=== PATIENT | female | born 1935 | race Caucasian/White ===

== ENCOUNTER 2019-07-24 07:00 | Inpatient (IN) ==
--- NOTE | 2019-07-16 10:39 | EKG Report ---
Test Performed on : 07/16/2019 10:18:20 AM Test Reason : pat Blood Pressure : / mmHG Vent. Rate : 077 BPM Atrial Rate : 077 BPM P-R Int : 208 ms QRS Dur : 084 ms QT Int : 384 ms P-R-T Axes : 070 -08 053 degrees QTc Int : 434 ms Sinus rhythm. with premature supraventricular complexes. Cannot rule out Anterior infarct , age undetermined Abnormal ECG When compared with ECG of 28-JUN-2017 07:57, Minimal criteria for Anterior infarct are now present Confirmed by Ulysses HUTTON, Nolan Yang ([id number]) on 07/17/2019 7:45:07 AM
[2019-07-16 10:50] LABS: URINE SOURCE CLEAN CATCH
[2019-07-16 10:57] LABS: BILIRUBIN URINE NEGATIVE (NEGATIVE); BLOOD URINE NEGATIVE (NEGATIVE); COLOR YELLOW; GLUCOSE URINE NEGATIVE (NEGATIVE); KETONE URINE NEGATIVE (NEGATIVE); LEUKOCYTES URINE SMALL (NEGATIVE); NITRITE URINE NEGATIVE (NEGATIVE); PH URINE 6.5; PROTEIN URINE NEGATIVE (NEGATIVE); SP GRAVITY URINE 1.014; TURBIDITY URINE CLEAR (CLEAR); UR EPITHELIAL CELLS <10 /HPF (<10); URINE BACTERIA 1+ /HPF; URINE RBC <10 /HPF (<10); URINE WBC 20-40 /HPF (<10); UROBILINOGEN URINE NORMAL (NORMAL)
[2019-07-16 10:58] LABS: BASO# 0.02 X1000 (0.0-0.2); BASO% 0.4 % (0.0-0.8); EOS# 0.08 X1000 (0.0-0.7); EOS% 1.6 % (0.0-10.0); HEMATOCRIT 42.8 % (37.0-47.0); HEMOGLOBIN 13.7 g/dL (12.0-16.0); LYMPH% 29.3 % (20.5-51.1); MCH 28.3 PG (27-31); MCV 88.4 FL (81-99); MONO# 0.56 X1000 (0.11-0.59); MONO% 10.9 % (1.7-9.3); MPV 9.8 FL (7.4-10.4); NEUT# 2.96 X1000 (1.4-6.5); NEUT% 57.8 % (42.2-75.2); PLT 155 X1000 (130-400); RBC 4.84 XMIL (4.2-5.4); RDW 15.6 % (11.5-14.5); WBC 5.12 X1000 (4.8-10.8)
[2019-07-16 11:03] LABS: HEMOGLOBIN A1C 5.6 % (4.8-6.0)
[2019-07-16 11:05] LABS: AGAP 10; BUN 18 mg/dL (8-22); CALCIUM 9.1 mg/dL (8.8-10.2); CHLORIDE 104 mmol/L (98-107); COSMO 285; CREATININE 0.7 mg/dL (0.5-0.9); ESTIMATED GFR > 60; GLUCOSE 140 mg/dL (70-104); POTASSIUM 4.1 mmol/L (3.5-5.1); SODIUM 141 mmol/L (136-145); TCO2 27 mmol/L (25-35)
[2019-07-16 11:31] LABS: INR 1.05; PROTIME 13.8 Seconds (11.0-16.0)
[2019-07-16 11:32] LABS: PTT 25.3 Seconds (22.3-41.8)
[2019-07-24] MEDS ORDERED: LYRICA ONE (07:25)
[2019-07-24] MEDS ORDERED: COLACE ONE (07:25)
[2019-07-24] MEDS ORDERED: LR 1,000 ML ONE (07:25)
[2019-07-24] MEDS ORDERED: CELEBREX ONE (07:25)
[2019-07-24] MEDS ORDERED: PEPCID ONE (07:25)
[2019-07-24] MEDS ORDERED: REGLAN ONE (07:25)
[2019-07-24] MEDS ORDERED: KEFZOL 1 GM/D5W 2 GM/100 ML IVPB ONE (07:25)
[2019-07-24] MEDS ORDERED: TORADOL ONE ×2 (07:52→08:48)
[2019-07-24] MEDS ORDERED: DURAMORPH ONE (07:52)
[2019-07-24] MEDS ORDERED: VANCOMYCIN ONE (07:53)
[2019-07-24] MEDS ORDERED: SODIUM CHLORIDE 0.9% ONE (07:53)
[2019-07-24] MEDS ORDERED: MARCAINE 0.25% PF ONE (07:53)
[2019-07-24] MEDS ORDERED: EXPAREL 1.3% ONE (07:53)
[2019-07-24] MEDS ORDERED: DIPRIVAN 1% ONE (08:17)
[2019-07-24] MEDS ORDERED: XYLOCAINE-MPF 2% ONE (08:17)
[2019-07-24] MEDS ORDERED: ROBINUL ONE (08:17)
[2019-07-24] MEDS ORDERED: DECADRON ONE (08:46)
[2019-07-24] MEDS ORDERED: OFIRMEV 1000 MG/ISOTONIC SOLN 1,000 MG/100 ML BOTTLE ONE (08:46)
[2019-07-24] MEDS: CYKLOKAPRON 1,000 MG/NS 2,000 MG/200 ML IVPB ONE ×2 (08:50→10:00)
[2019-07-24] MEDS ORDERED: OXY IR PO PRN ×2 (10:45)
[2019-07-24] MEDS ORDERED: ZOFRAN PO PRN (10:45)
[2019-07-24] MEDS ORDERED: MORPHINE IV PRN ×3 (10:45)
[2019-07-24] MEDS ORDERED: NS 1,000 ML ONE (10:45)
--- NOTE | 2019-07-24 11:11 | Diag Imaging Result Doc PS360 ---
EXAM: KNEE 1-2 VIEWS-LEFT 07/24/2019 HISTORY: post op total knee TECHNIQUE: Left knee two views COMMENT: There is a total knee arthroplasty. There is no evidence of acute bony abnormality. IMPRESSION: Postsurgical changes. Electronically signed by Cristino Estrella 07/24/2019 11:09 AM
[2019-07-24 11:22] LABS: URINE SOURCE CATH
[2019-07-24 11:28] LABS: BILIRUBIN URINE NEGATIVE (NEGATIVE); BLOOD URINE NEGATIVE (NEGATIVE); COLOR YELLOW; GLUCOSE URINE NEGATIVE (NEGATIVE); KETONE URINE NEGATIVE (NEGATIVE); LEUKOCYTES URINE NEGATIVE (NEGATIVE); NITRITE URINE NEGATIVE (NEGATIVE); PH URINE 5.5; PROTEIN URINE NEGATIVE (NEGATIVE); SP GRAVITY URINE 1.017; TURBIDITY URINE CLEAR (CLEAR); UROBILINOGEN URINE NORMAL (NORMAL)
[2019-07-24 11:29] LABS: UR EPITHELIAL CELLS <10 /HPF (<10); URINE BACTERIA NEGATIVE /HPF; URINE RBC <10 /HPF (<10); URINE WBC <10 /HPF (<10)
[2019-07-24] MEDS: TYLENOL PO SCH ×3 (11:41→22:00)
--- NOTE | 2019-07-24 15:26 | OPERATIVE NOTE ---
PROCEDURE DATE: 07/24/2019 PREOPERATIVE DIAGNOSIS: Degenerative arthritis of the left knee. POSTOPERATIVE DIAGNOSIS: Degenerative arthritis of the left knee. PROCEDURES: Left total knee arthroplasty with DePuy Attune size 6 posterior stabilized femur, size 7 tibial tray, 10 mm rotating platform tibial insert, and a 35 mm medialized anatomic patella. SURGEON: Dav Tom MD CUSTOMER ACCOUNT SPECIALIST: JON Chandler who was necessary for proper positioning, retraction, and manipulation of the extremity during the case. SECOND INTERNATIONAL SOURCING MANAGER: JON Escobar and Zack Carlin RN. ANESTHESIA: Spinal. IV FLUIDS: 1100 mL lactated Ringer's. ESTIMATED BLOOD LOSS: 25 mL. TOURNIQUET TIME: 75 minutes at 300 mmHg COMPLICATIONS: None. INDICATIONS: The patient is a pleasant 84-year-old female with chronic history of pain and discomfort of the left knee. Her pain has progressed to affect her activities of daily living. A recommendation to proceed with left total knee arthroplasty was offered. Risks and benefits of surgery were explained, including the risks of anesthesia, , bleeding, infection, failure to relieve pain, postoperative stiffness, nerve injury, blood clots, and other imponderables. All questions were answered. Patient and family wished to proceed with surgery. DETAILS OF OPERATION: The patient was taken to the operating room and underwent spinal anesthesia. After adequate anesthesia was obtained, she was placed supine on operating table. The left lower extremity was subsequently prepped and draped in the usual sterile fashion. An Esmarch was used to exsanguinate the left lower extremity. The tourniquet was inflated to 300 mmHg. A standard anterior incision was made with a skin knife. Medial and lateral skin envelopes were developed. Standard medial parapatellar arthrotomy was then performed. Patella fat pad was excised. Retractor was then placed. Approximately 1 cm anterior to the PCL insertion, starting reamer was passed. Intramedullary guide with a distal femoral cutting block was pinned in position. Distal femoral cut was then performed in a standard fashion. A sizing block was placed and measured size 6. Corresponding pins were placed. The chamfer cutting block was placed in position. Anterior, posterior, and chamfer cuts were then made. Attention was then turned to the proximal tibia where using the extramedullary guide, the proximal tibia cutting block was pinned in position. It had good alignment confirmed with the alignment vicente. The proximal tibia was then resected. Medial and lateral menisci were excised. A curved osteotome was used to remove post osteophytes off the distal femur. A spacer block was placed and had good soft tissue balance in both flexion and extension. Attention was then turned back to the proximal tibia where a size 7 tibial tray appeared to be the correct size. This was pinned in good position followed by a central reamer and a fin punch. A box cutting guide was placed on the distal femur. A box cut was then performed. The trial femoral component was then placed. Two lug holes were drilled. Trial tibial insert was then placed and good soft tissue balancing. The patella was everted and resected in a standard fashion. A 35 appeared to be the correct size. The corresponding holes were drilled. A size 35 patella component was then placed. It had good patellofemoral tracking. Trial components were then removed. Copious irrigation once again was performed with antibiotic pulsatile lavage while vancomycin was mixed with cement on the back table. Sequential cementing was then performed first with the tibial tray, and excess cement was removed with a G[place] followed by the femoral component and excess cement removed with a G[place] followed by trial tibial insert in full extension. Axial loading was maintained while cement cured. The patella component was cemented in standard fashion. Patella clamp was placed. While cement was curing, Exparel was placed in the deep soft tissue as well as the subcutaneous tissue. After cement had cured peripheral cement was removed with a small osteotome. Trial insert was determined to be the size 10 and appeared to be the correct size. Trial insert was removed. Exparel was placed in the deep posterior capsule. The wound was copiously irrigated once again. A 10 mm rotating platform tibial insert was then placed, and had good soft tissue balance and good range of motion, and good patellofemoral tracking. A 1/8 Hemovac drain was placed and was not sewn in. Copious irrigation once again with antibiotic pulsatile lavage. Number 1 Vicryl to repair the arthrotomy, followed by 2-0 Vicryl. Subcutaneous tissue and skin tamika. Adaptic, sterile 4 x 4's, Webril, cryo unit, and Kenyon wrap applied to the left lower extremity. Patient tolerated the procedure well. No complications. Transferred to the recovery room in stable condition. cc: Dav Tom MD [facility]
[2019-07-24] MEDS: KEFZOL 2 GM/D5W 2 GM/50 ML IVPB IV SCH (16:51)
[2019-07-24] MEDS: COLACE PO SCH (22:00)
[2019-07-25] MEDS: KEFZOL 2 GM/D5W 2 GM/50 ML IVPB IV SCH (00:35)
[2019-07-25] MEDS: NS 1,000 ML IV SCH (02:00)
[2019-07-25] MEDS ORDERED: OXY IR PO PRN ×2 (06:20)
[2019-07-25 06:46] LABS: HEMATOCRIT 35.9 % (37.0-47.0); HEMOGLOBIN 11.8 g/dL (12.0-16.0)
[2019-07-25 06:56] LABS: AGAP 10; BUN 17 mg/dL (8-22); CALCIUM 7.7 mg/dL (8.8-10.2); CHLORIDE 104 mmol/L (98-107); COSMO 276; CREATININE 0.7 mg/dL (0.5-0.9); ESTIMATED GFR > 60; GLUCOSE 103 mg/dL (70-104); SODIUM 137 mmol/L (136-145); TCO2 23 mmol/L (25-35)
--- NOTE | 2019-07-25 07:09 | ORTHOPAEDICS PROGRESS NOTE ---
DATE: 07/25/2019 SUBJECTIVE: The patient is a pleasant 84-year-old female who is 1 day status post left total knee arthroplasty. Patient is currently resting comfortably. OBJECTIVE: Patient's left lower extremity dressing is intact. Her calf is soft. She is neurovascularly intact distally, and has active dorsiflexion and plantar flexion. LABORATORY: Her labs are pending. IMPRESSION: Status post left total knee arthroplasty. PLAN: At this point, we will attempt to plan on change her dressing, discontinue her drain and Stauffer this morning. We will begin mobilization with physical therapy. It is felt that the patient would benefit from inpatient rehabilitation. Patient had some limited mobility, and does not have very good endurance, and uses a walker for an in-home ambulation. We will consult social media marketing analyst for discharge planning for inpatient rehabilitation. cc: Dav Tom MD
[2019-07-25] MEDS: COLACE PO SCH ×2 (09:51→21:26)
[2019-07-25] MEDS: PERIDEX MT SCH ×2 (09:51→21:26)
[2019-07-25] MEDS: XARELTO PO SCH (09:51)
[2019-07-25] MEDS: TYLENOL PO SCH ×2 (10:55→16:45)
[2019-07-25] MEDS ORDERED: FOSAMAX PO SCH (14:45)
--- NOTE | 2019-07-25 17:14 | Diag Imaging Result Doc PS360 ---
EXAM: CHEST-1 VIEW INDICATION: rehab TECHNIQUE: One view COMPARISON: 07/06/2017 FINDINGS: Inspiration is suboptimal. There is suggestion of mild subsegmental atelectasis at the right lung base. The lungs are grossly clear, otherwise. There is no discrete pleural fluid collection or pneumothorax. The cardiomediastinal silhouette and central vasculature are grossly unremarkable accounting for magnification from AP technique. IMPRESSION: Suggestion of mild white matter subsegmental atelectasis. No definite acute pathology, otherwise. Electronically signed by Song Osorio 07/25/2019 5:12 PM
[2019-07-25] MEDS: PRINIVIL PO SCH (21:33)
[2019-07-26] MEDS: TYLENOL PO SCH ×4 (01:19→20:13)
[2019-07-26] MEDS: NS 1,000 ML IV SCH (03:26)
[2019-07-26 06:37] LABS: HEMATOCRIT 34.8 % (37.0-47.0); HEMOGLOBIN 11.1 g/dL (12.0-16.0)
[2019-07-26] MEDS: XARELTO PO SCH (06:40)
[2019-07-26] MEDS: SYNTHROID PO SCH (06:40)
--- NOTE | 2019-07-26 06:53 | ORTHOPAEDICS PROGRESS NOTE ---
DATE: 07/26/2019 SUBJECTIVE: The patient is a pleasant 84-year-old female who is 2 days status post left total knee arthroplasty. She is resting comfortably this morning. OBJECTIVE: On physical exam, patient's left lower extremity, her wound looks good. There are no signs or symptoms of infection. Her calf is soft. She has active dorsiflexion and plantar flexion. She is neurovascularly intact distally. LABS: Pending. IMPRESSION: Postoperative day #2 status post left total knee arthroplasty. PLAN: At this point, the patient is slow to mobilize with physical therapy. It is felt she would benefit from inpatient rehabilitation. We are waiting for the decision on rehab eligibility. She was encouraged to continue with physical therapy with full weightbearing of the left lower extremity. cc: Dav Tom MD
[2019-07-26] MEDS: PRINZIDE 10/12.5MG PO SCH (11:02)
[2019-07-26] MEDS: PERIDEX MT SCH ×2 (11:02→21:48)
[2019-07-26] MEDS: COLACE PO SCH ×2 (11:03→21:48)
[2019-07-26] MEDS: PLENDIL PO SCH (11:05)
[2019-07-26] MEDS: PRINIVIL PO SCH (21:48)
[2019-07-26] MEDS: ZOCOR PO SCH (21:48)
[2019-07-27 07:05] LABS: HEMATOCRIT 31.9 % (37.0-47.0); HEMOGLOBIN 10.3 g/dL (12.0-16.0)
[2019-07-27] MEDS: TYLENOL PO SCH ×4 (07:58→15:44)
[2019-07-27] MEDS: XARELTO PO SCH (07:58)
[2019-07-27] MEDS: SYNTHROID PO SCH (07:58)
[2019-07-27] MEDS: COLACE PO SCH ×2 (11:46→20:22)
[2019-07-27] MEDS: PRINZIDE 10/12.5MG PO SCH (11:46)
[2019-07-27] MEDS: PLENDIL PO SCH (11:47)
[2019-07-27] MEDS: PERIDEX MT SCH ×2 (11:47→20:21)
[2019-07-27] MEDS: NS 1,000 ML IV SCH (11:49)
--- NOTE | 2019-07-27 14:51 | ORTHOPAEDICS PROGRESS NOTE ---
DATE: 07/27/2019 SUBJECTIVE: No acute events overnight. Patient is doing well. She is postop day 3 from left knee replacement with Dr. Tom. She is tolerating diet. She has not worked with therapy yet today. She has no other complaints. OBJECTIVE: Hematocrit is 32. Examination of left lower extremity shows surgical incision and dressing to be clean, dry, intact. No drainage, erythema, or ecchymosis around the incision site. Thigh and calf soft, compressible. Motor: Intact EHL, tibialis anterior, gastrocsoleus complex. Sensation intact to light touch L3- S1. Dorsalis pedis pulse palpable. ASSESSMENT: An 84-year-old female status post left total knee arthroplasty. Postoperative day 3. PLAN: 1. Patient can continue weightbearing as tolerated, left lower extremity. Physical therapy to mobilize with assistive device. 2. Ice to the left lower extremity as needed for pain. 3. Xarelto for DVT prophylaxis. 4. Disposition: The patient is planning on being discharged to [facility] on Monday for jail. cc: Dav Tom MD
[2019-07-27] MEDS: ZOCOR PO SCH (20:21)
[2019-07-27] MEDS: PRINIVIL PO SCH (20:21)
[2019-07-28] MEDS: TYLENOL PO SCH ×3 (01:54→17:25)
[2019-07-28] MEDS: SYNTHROID PO SCH (06:14)
[2019-07-28] MEDS: XARELTO PO SCH (06:14)
[2019-07-28] MEDS: PERIDEX MT SCH ×2 (09:32→20:40)
[2019-07-28] MEDS: PLENDIL PO SCH (09:32)
[2019-07-28] MEDS: COLACE PO SCH ×2 (09:33→20:37)
[2019-07-28] MEDS: PRINZIDE 10/12.5MG PO SCH (09:33)
--- NOTE | 2019-07-28 13:51 | ORTHOPAEDICS PROGRESS NOTE ---
DATE: 07/28/2019 SUBJECTIVE: No acute events overnight. The patient is doing well. States she has no pain in the knee. She ambulated in the hallway with Physical Therapy yesterday. She is tolerating a diet. OBJECTIVE: Examination of the left lower extremity shows surgical dressing clean, dry, intact. Thigh and calf soft and compressible. Motor intact, EHL, tibialis anterior, gastrocsoleus complex. Sensation intact to light touch, L3 to S1. Dorsalis pedis pulse palpable. ASSESSMENT: An 84-year-old female, postoperative day 4, status post left total knee arthroplasty. PLAN: 1. Patient to continue weightbearing as tolerated. Physical Therapy to mobilize as instructed with a rolling walker. 2. Ice to the left lower extremity as needed for pain. 3. Xarelto for DVT prophylaxis. 4. Disposition. Plan to be discharged to [facility] tomorrow for inpatient rehab. She is to follow up with Dr. Tom at her previously scheduled appointment. cc: Dav Tom MD
[2019-07-28] MEDS: ZOCOR PO SCH (20:37)
[2019-07-28] MEDS: PRINIVIL PO SCH (20:38)
[2019-07-29] MEDS: TYLENOL PO SCH ×2 (05:18→05:19)
[2019-07-29] MEDS: XARELTO PO SCH (06:20)
[2019-07-29] MEDS: SYNTHROID PO SCH (06:20)
--- NOTE | 2019-07-29 09:54 | DISCHARGE SUMMARY ---
ADMISSION DATE: 07/24/2019 DISCHARGE DATE: 07/29/2019 ADMITTING DIAGNOSIS: Degenerative osteoarthritis of the left knee. DISCHARGE DIAGNOSIS: Degenerative osteoarthritis of the left knee status post left total knee arthroplasty. BRIEF HISTORY: Patient is a pleasant 84-year-old female with a longstanding history of worsening pain and discomfort in the left knee. X-rays revealed degenerative arthritis. Her pain has progressed to affect her activities a living. Given patient's findings, a recommendation to proceed with left total knee arthroplasty was offered. Risks and benefits discussed, and all questions were answered. The patient and family wished to proceed with procedure. HOSPITAL COURSE AND TREATMENT: The patient admitted to the hospital and underwent left total knee arthroplasty. She tolerated the procedure well. Patient had an uneventful postoperative course. By postoperative day #3, her hemoglobin and hematocrit stabilized to 10.3 and 31.9. Patient was slow to mobilize with physical therapy. It is felt she would benefit from inpatient rehabilitation. Patient's family was agreeable to this. Prior to discharge, the patient is afebrile and tolerating regular diet. She was progressing with physical therapy. Her wound looked good. There are no signs or symptoms of infection. DISCHARGE MEDICATIONS: 1. OxyIR 5 mg 1 p.o. q.4 hours 4 to 6 hours p.r.n. pain. 2. Xarelto 10 mg p.o. daily x2 weeks. DISCHARGE INSTRUCTIONS: 1. Patient discharged for inpatient rehabilitation. 2. Consult physical therapy with full weightbearing, range of motion exercises, and gait training per total knee protocol. 3. Discontinue tamika on 08/06/2019. 4. Follow up in the office in 3 to 4 weeks. cc: Dav Tom MD
[2019-07-29] MEDS: PLENDIL PO SCH (10:03)
[2019-07-29] MEDS: COLACE PO SCH (10:03)
[2019-07-29] MEDS: PRINZIDE 10/12.5MG PO SCH (10:03)
[2019-07-29] MEDS: PERIDEX MT SCH (10:03)
[2019-07-29 11:09] VITALS: BP 124/54
--- NOTE | 2019-07-29 12:43 | ORTHOPAEDICS PROGRESS NOTE ---
DATE: 07/29/2019 SUBJECTIVE: She denies any problems through the night last night. She is doing well this morning. She is ambulating with physical therapy and is ready to go to rehab today. She is tolerating her diet without any problems. OBJECTIVE: Examination of the left lower extremity reveals a clean surgical incision with no redness to suggest a secondary infection at this time. Her dressing is clean, dry, and intact. Her calf is soft. She has sensation intact distally to her incision and she is neurovascularly intact distally. ASSESSMENT: Postop day 4 of a left total knee arthroplasty. PLAN: The patient will go to rehab today pending bed placement. She will continue Xarelto for DVT prophylaxis. She is to have physical therapy while in rehab with weightbearing as tolerated. She will follow up with Dr. Tom in clinic in 3 to 4 weeks. We will change her dressing this morning prior to her discharge to rehab. Dictated by JON Escobar for Dav Tom MD cc: Dav Tom MD
== END 2019-07-29 12:34 | DRG 470 ==
LOC: 4N 07:00 → PAT 07:00
PROVIDERS: ADMIT Orthopaedic Surgery Adult Reconstructive Orthopaedic Surgery; ATTEND Orthopaedic Surgery Adult Reconstructive Orthopaedic Surgery